=== PATIENT | female | born 1960 | race Two or more races ===

== ENCOUNTER → 2016-06-11 | Outpatient (CLI) | payer BC ==
--- NOTE | 2016-06-11 16:21 | MG ---
HISTORY: SCREENING Comparison: None available FINDINGS: Bilateral CC and MLO projections of the right and left breast were obtained. Heterogeneously dense fibroglandular tissue is seen to be present. There is a focal asymmetry located at approximately the 5 o'clock to 6 o'clock position of the left breast mid depth. An additional focal asymmetry is iden tified within the central left breast, visualized on CC view only. Further evaluation with spot comp ression views is recommended. If the asymmetries persist, targeted sonography will be warranted. No significant architectural distortion, mass or clustered microcalcifications can be observed to sugge st malignancy. No skin thickening or nipple retraction is appreciated. No pathological lymphadeno fracisco can be identified. Benign-appearing calcifications scattered throughout the right and left avani asts are observed. IMPRESSION: 1. Left breast focal asymmetries as described above for which spot compression views and possible ta rgeted sonography are recommended. ACR CATEGORY 0 - assessment incomplete; additional imaging needed Spot-compression views of the left breast recommended Diagnostic CAD was utilized and reviewed. * 0 (ZERO) - ASSESSMENT INCOMPLETE; ADDITIONAL IMAGING IS NEEDED. * 1/1 (ONE) - NEGATIVE. * 2/II (TWO) - BENIGN FINDINGS. * 3/III (THREE) - PROBABLY BENIGN FINDING; SHORT INTERVAL FOLLOW-UP SUGGESTED. * 4/IV (FOUR) - SUSPICIOUS ABNORMALITY; BIOPSY SHOULD BE CONSIDERED. * 5/V - HIGHLY SUSPICIOUS OF MALIGNANCY; BIOPSY SHOULD BE PERFORMED. A NEGATIVE X-RAY REPORT SHOULD NOT DELAY BIOPSY IF A DOMINANT OR CLINICALLY SUSPICIOUS MASS IS PRESENT; 4 TO 8 PERCENT OF CANCERS ARE NOT IDENTIFIED BY X-RAY. A NEG ATIVE REPORT MAY REINFORCE THE CLINICAL IMPRESSION. ADENOSIS AND DENSE BREASTS MAY OBSCURE AN UNDER LYING NEOPLASM. Reported By:
== END ==
LOC: RAD 09:30
PROVIDERS: ATTEND Internal Medicine
DX: Z12.31 Encounter for screening mammogram for malignant neoplasm of breast (principal)
CPT/HCPCS: 77067

== ENCOUNTER → 2016-06-20 | Outpatient (CLI) | payer BC | LOC: RAD 14:10 | PROVIDERS: ATTEND Internal Medicine | DX: R00.2 Palpitations (principal) | CPT/HCPCS: 93306 ==